=== PATIENT | female | born 1975 | race Caucasian/White ===

== ENCOUNTER 2018-12-01 21:57 | Observation (INO) | payer MEDICAID ==
[2018-12-01] MEDS ORDERED: Morphine 4 MG/ML Syringe IM ONE (22:05)
--- NOTE | 2018-12-01 22:17 | EDM.PDOC ---
ED HPI GENERAL MEDICAL PROBLEM - General Stated Complaint: FALL Time Seen by Provider: 12/01/18 21:57 Source of Information: Reports: Patient, EMS, Family History Limitations: Reports: Physical Impairment - History of Present Illness INITIAL COMMENTS - FREE TEXT/NARRATIVE: 43 y.o.morbid obese female came by EMS after she fell at home taking a shower. Pt c/o severe pain behind her right knee. Any movement is painfull. No N/V/D or any other acute med issue. BP 144/91 RR 18 Pulse ox 98% on RA Temp 36.6 Pulse 88 Onset Date: 12/01/18 Onset Time: 20:00 Duration: Minutes:, Hour(s): Location: Reports: Lower Extremity, Right (knee) Quality: Reports: Ache, Dull Severity: Moderate Improves with: Reports: Rest Worsens with: Reports: Movement Context: Reports: Trauma Associated Symptoms: Reports: No Other Symptoms right knee Pain Score (Numeric/FACES): 10 - Related Data Allergies Allergy/AdvReac Type Severity Reaction Status Date / Time Penicillins Allergy Anaphylactic Verified 12/02/18 02:58 Shock Home Meds: Home Meds Benztropine Mesylate 0.5 mg PO DAILY 12/01/18 [History] Dorzolamide/Timolol [Dorzolomide-Timolol Eye Drops] 10 ml .XX DAILY 12/01/18 [ History] Losartan Potassium 50 mg PO DAILY 12/01/18 [History] Lurasidone HCl [Latuda] 80 mg PO DAILY 12/01/18 [History] atoMOXetine HCl [Atomoxetine HCl] 60 mg PO DAILY 12/01/18 [History] traMADol HCl [Tramadol HCl] 50 mg PO Q6H PRN 12/01/18 [History] Review of Systems - Review of Systems Review Of Systems: See Below Constitutional: Reports: No Symptoms Eyes: Reports: No Symptoms Ears: Reports: No Symptoms Nose: Reports: No Symptoms Mouth/Throat: Reports: No Symptoms Respiratory: Reports: No Symptoms Cardiovascular: Reports: No Symptoms GI/Abdominal: Reports: No Symptoms Genitourinary: Reports: No Symptoms Musculoskeletal: Reports: Joint Pain (right knee) Skin: Reports: No Symptoms Neurological: Reports: No Symptoms Psychiatric: Reports: No Symptoms ED EXAM, GENERAL - Physical Exam Exam: See Below Exam Limited By: Physical Impairment General Appearance: Alert, Moderate Distress, Obese (morbid) Eye Exam: Bilateral Eye: Normal Inspection Ears: Normal External Exam Ear Exam: Bilateral Ear: Auricle Normal Nose: Normal Inspection, Normal Mucosa Throat/Mouth: Normal Inspection, Normal Lips, Normal Voice, No Airway Compromise Head: Atraumatic, Normocephalic Neck: Normal Inspection, Supple, Non-Tender Respiratory/Chest: No Respiratory Distress, Lungs Clear, Normal Breath Sounds, Chest Non-Tender Cardiovascular: Normal Peripheral Pulses, Regular Rate, Rhythm, No Edema, No Rub GI/Abdominal: Normal Bowel Sounds, Soft, Non-Tender, No Mass (Female) Exam: Deferred Rectal (Female) Exam: Deferred Back Exam: Normal Inspection, Full Range of Motion Extremities: Normal Inspection, Normal Range of Motion, Non-Tender Neurological: Alert, Oriented, CN II-XII Intact, Other (unable to ambulate due to right knee pain) Psychiatric: Normal Affect, Normal Mood Skin Exam: Warm, Dry, Intact, Normal Color, No Rash Lymphatic: No Adenopathy Course - Vital Signs Text/Narrative:: 43 y.o.morbid obese female came by EMS after she fell at home taking a shower. Pt c/o severe pain behind her right knee. Any movement is painfull. No N/V/D or any other acute med issue. BP 144/91 RR 18 Pulse ox 98% on RA Temp 36.6 Pulse 88 PE: Morbid obese w f wit right knee pain, unable to ambulate Imaging: Minimally displaced vertical Fx right lat epicondyle of right knee T/P and heal neg Impression: Minimally displaced vertical Fx right lat epicondyle of right knee. S/P fall, unable to ambulate. Tx: Morphine sulfate totalof 8 mg IM 12.01 am Consultation: Vera Ontiveros, no answer 12.11 am Consultation: Vera Ontiveros, no answer 12.17 am Consultation: Vera Myers, [facility]: Minimally displaced Fx right lat epicondyle of right knee, no surgery indicated, Knee immobilizer of wheel chair, no weight bearing. Reexam: Pt was stable in the ED. we do not have the Size of Knee immobilizer for this Pt's seiz and no wheelchair to give her to take home. Plan: Admit for M/S OBS Last Recorded V/S: Last Vital Signs Temp 36.8 C 12/02/18 02:45 Pulse 93 12/02/18 02:45 Resp 18 12/02/18 02:45 BP 100/67 12/02/18 02:45 Pulse Ox 97 12/02/18 02:45 - Orders/Labs/Meds Orders: Active Orders 24 hr Category Date Time Status Patient Status [ADT] Routine ADT 12/02/18 02:21 Active Cooling Warming Measures [RC] ASDIRECTED Care 12/01/18 22:15 Active Oxygen Therapy [RC] PRN Care 12/02/18 02:21 Active Up With Assistance [RC] ASDIRECTED Care 12/02/18 02:20 Active VTE/DVT Education [RC] Per Unit Routine Care 12/02/18 02:21 Active Vital Signs [RC] Q4H Care 12/02/18 02:21 Active Lower Extremity wo Cont Rt [CT] Stat Exams 12/01/18 22:13 Taken Tibia Fibula Rt [CR] Stat Exams 12/02/18 01:08 Taken Ice Bag [Ice Therapy] [OM.PC] Routine Oth 12/01/18 22:15 Ordered Resuscitation Status Routine Resus Stat 12/02/18 02:20 Ordered Meds: Medications Discontinued Medications Generic Name Dose Route Start Last Admin Trade Name Freq PRN Reason Stop Dose Admin Morphine Sulfate 4 mg 12/01/18 22:05 12/01/18 22:15 Morphine IM 12/01/18 22:06 4 mg ONETIME ONE Administration Morphine Sulfate Confirm 12/01/18 22:11 12/01/18 22:20 Morphine Administered 12/01/18 22:12 Not Given Dose 4 mg .ROUTE .STK-MED ONE Morphine Sulfate 4 mg 12/02/18 01:04 12/02/18 01:08 Morphine IM 12/02/18 01:05 4 mg ONETIME ONE Administration Morphine Sulfate Confirm 12/02/18 01:07 12/02/18 01:11 Morphine Administered 12/02/18 01:08 Not Given Dose 4 mg .ROUTE .STK-MED ONE Orphenadrine Citrate 60 mg 12/02/18 03:02 Norflex IM 12/02/18 03:03 Q12H STA Departure - Departure Time of Disposition: 02:27 Disposition: Refer to Observation Condition: Fair Clinical Impression: Closed fracture of knee region - Discharge Information - My Orders Last 24 Hours: My Active Orders 12/01/18 22:13 Lower Extremity wo Cont Rt [CT] Stat 12/01/18 22:15 Cooling Warming Measures [RC] ASDIRECTED Ice Bag [Ice Therapy] [OM.PC] Routine 12/02/18 01:08 Tibia Fibula Rt [CR] Stat 12/02/18 02:20 Up With Assistance [RC] ASDIRECTED Resuscitation Status Routine 12/02/18 02:21 Patient Status [ADT] Routine Oxygen Therapy [RC] PRN VTE/DVT Education [RC] Per Unit Routine Vital Signs [RC] Q4H - Assessment/Plan Last 24 Hours: My Active Orders 12/01/18 22:13 Lower Extremity wo Cont Rt [CT] Stat 12/01/18 22:15 Cooling Warming Measures [RC] ASDIRECTED Ice Bag [Ice Therapy] [OM.PC] Routine 12/02/18 01:08 Tibia Fibula Rt [CR] Stat 12/02/18 02:20 Up With Assistance [RC] ASDIRECTED Resuscitation Status Routine 12/02/18 02:21 Patient Status [ADT] Routine Oxygen Therapy [RC] PRN VTE/DVT Education [RC] Per Unit Routine Vital Signs [RC] Q4H
[2018-12-02] MEDS ORDERED: Morphine 4 MG/ML Syringe IM ONE (01:04)
[2018-12-02] MEDS: Acetaminophen/HYDROcodone 325-5 MG Tab PO PRN ×4 (07:44→21:55)
--- NOTE | 2018-12-02 08:39 | PCM.HP ---
H&P History of Present Illness - General Date of Service: 12/02/18 Admit Problem/Dx: Admission Diagnosis/Problem Admission Diagnosis/Problem Knee joint injury Source of Information: Patient History Limitations: Reports: No Limitations - History of Present Illness Initial Comments - Free Text/Narative: Kamila is a 43-year-old female complains right knee pain. Pain is severe behind the knee describes it as spasms. She is unable to ambulate.It happened while was walking when she felt a pop. She was unable to ambulate; called the ambulance and was brought to the ED. right knee Pain Score (Numeric/FACES): 10 - Related Data Allergies/Adverse Reactions: Allergies Allergy/AdvReac Type Severity Reaction Status Date / Time Penicillins Allergy Anaphylactic Verified 12/02/18 02:58 Shock Home Medications: Home Meds Benztropine Mesylate 0.5 mg PO DAILY 12/01/18 [History] Dorzolamide/Timolol [Dorzolomide-Timolol Eye Drops] 10 ml .XX DAILY 12/01/18 [ History] Losartan Potassium 50 mg PO DAILY 12/01/18 [History] Lurasidone HCl [Latuda] 80 mg PO DAILY 12/01/18 [History] atoMOXetine HCl [Atomoxetine HCl] 60 mg PO DAILY 12/01/18 [History] traMADol HCl [Tramadol HCl] 50 mg PO Q6H PRN 12/01/18 [History] Aspirin 81 mg PO DAILY 12/02/18 [History] Carboxymethylcellulose Sodium [Refresh Tears] 1 drop Q4HR PRN 12/02/18 [History] Past Medical History HEENT History: Reports: Impaired Vision Cardiovascular History: Reports: Hypertension [employer] History: Reports: Other OB/BYN History: Musculoskeletal History: Reports: Fracture, Other (See Below) Other Musculoskeletal History: bilat wrist fx. r ankle fx. this admission r femur fx Neurological History: Reports: Migraines Psychiatric History: Reports: ADD, Depression Endocrine/Metabolic History: Reports: Obesity/BMI 30+ - Infectious Disease History Infectious Disease History: Reports: Chicken Pox - Past Surgical History Female Surgical History: Reports: Section Social & Family History - Family History Family Medical History: Noncontributory - Tobacco Use Smoking Status *Q: Never Smoker Years of Tobacco use: 3 Packs/Tins Daily: 0.5 Second Hand Smoke Exposure: No - Caffeine Use Caffeine Use: Reports: Soda Other Caffeine Use: 1 can - Recreational Drug Use Recreational Drug Use: No H&P Review of Systems - Review of Systems: Review Of Systems: ROS reveals no pertinent complaints other than HPI. Exam - Exam Exam: See Below - Vital Signs Vital Signs: Last Vital Signs Temp 98.3 F 12/02/18 02:45 Pulse 93 12/02/18 02:45 Resp 18 12/02/18 02:45 BP 100/67 12/02/18 02:45 Pulse Ox 97 12/02/18 02:45 Weight: 133.22 kg - Exam General: Alert, Oriented, 4 HEENT: PERRLA, Hearing Intact, Mucosa Moist & [place], Nares Patent, Normal Nasal Septum, Posterior Pharynx Clear, Conjunctiva Clear, EOMI, EACs Clear, TMs Clear Neck: Supple, Trachea Midline, 2 Lungs: Clear to Auscultation, Normal Respiratory Effort Cardiovascular: Regular Rate, Regular Rhythm GI/Abdominal Exam: Normal Bowel Sounds, Soft, Non-Tender, No Organomegaly, No Distention, No Abnormal Bruit, No Mass, Pelvis Stable (Female) Exam: Deferred Rectal (Female) Exam: Deferred Back Exam: Normal Inspection, Full Range of Motion, NT Extremities: Normal Inspection, Leg Pain, Limited Range of Motion. No: Normal Range of Motion Skin: Warm, Dry, Intact Neurological: Cranial Nerves Intact, Reflexes Equal Bilateral Neuro Extensive - Mental Status: Alert, Oriented x3, Normal Mood/Affect, Normal Cognition Neuro Extensive - Motor, Sensory, Reflexes: CN II-XII Intact, Normal Gait, Normal Reflexes Psychiatric: Alert, Normal Affect, Normal Mood - Problem List (1) Closed fracture of knee region SNOMED Code(s): 491677490 ICD Code: [id number] - Status: Acute Current Visit: Yes (2) Obesity SNOMED Code(s): 740547679, 160658792 ICD Code: E66.9 - OBESITY, UNSPECIFIED Status: Acute Current Visit: Yes Qualifiers: Obesity type: due to excess calories (3) EBER (generalized anxiety disorder) SNOMED Code(s): 45102849 ICD Code: F41.1 - GENERALIZED ANXIETY DISORDER Status: Acute Current Visit: Yes (4) ADHD SNOMED Code(s): 378181769 ICD Code: F90.9 - ATTENTION-DEFICIT HYPERACTIVITY DISORDER, UNSPECIFIED TYPE Status: Acute Current Visit: Yes (5) HTN (hypertension) SNOMED Code(s): 82291519 ICD Code: I10 - ESSENTIAL (PRIMARY) HYPERTENSION Status: Acute Current Visit: Yes Qualifiers: Hypertension type: essential hypertension Qualified Code(s): I10 - Essential (primary) hypertension (6) MDD (major depressive disorder) SNOMED Code(s): 999228464 ICD Code: F32.9 - MAJOR DEPRESSIVE DISORDER, SINGLE EPISODE, UNSPECIFIED Status: Acute Current Visit: Yes Qualifiers: Major depression recurrence: recurrent Problem List Initiated/Reviewed/Updated: Yes Orders Last 24hrs: Active Orders 24 hr Category Date Time Status Patient Status [ADT] Routine ADT 12/02/18 02:21 Active Oxygen Therapy [RC] PRN Care 12/02/18 02:21 Active Up With Assistance [RC] ASDIRECTED Care 12/02/18 02:20 Active VTE/DVT Education [RC] Per Unit Routine Care 12/02/18 02:21 Active Vital Signs [RC] 00,04,08,12,16,20 Care 12/02/18 02:21 Active OT Evaluation and Treatment [CONS] Routine Cons 12/02/18 08:35 Ordered PT Evaluation and Treatment [CONS] Routine Cons 12/02/18 08:35 Ordered Lower Extremity wo Cont Rt [CT] Stat Exams 12/01/18 22:13 Taken Tibia Fibula Rt [CR] Stat Exams 12/02/18 01:08 Taken Acetaminophen/HYDROcodone [Gordon 325-5 MG] Med 12/02/18 07:15 Active 1 tab PO Q4H PRN Aspirin Med 12/02/18 09:00 Ordered 81 mg PO DAILY Benztropine [Cogentin] Med 12/02/18 09:00 Ordered 0.5 mg PO DAILY Cyclobenzaprine [Flexeril] Med 12/02/18 08:35 Ordered 10 mg PO BID PRN Dorzolamide/Timolol [Cosopt 2%-0.5% Ophth Soln] Med 12/02/18 09:00 Ordered 10 ml .XX DAILY Losartan [Cozaar] Med 12/02/18 09:00 Ordered 50 mg PO DAILY Lurasidone HCl [Latuda] Med 12/02/18 09:00 Ordered 80 mg PO DAILY atoMOXetine HCl [Atomoxetine HCl] Med 12/02/18 09:00 Ordered 60 mg PO DAILY Ice Bag [Ice Therapy] [OM.PC] Routine Oth 12/01/18 22:15 Ordered Resuscitation Status Routine Resus Stat 12/02/18 02:20 Ordered Medication Orders Hydrocodone Bitart/Acetaminophen (Gordon 325-5 Mg) 1 tab PO Q4H PRN PRN Reason: Pain Last Admin: 12/02/18 07:44 Dose: 1 tab Aspirin (Aspirin) 81 mg PO DAILY JONATHAN Benztropine Mesylate (Cogentin) 0.5 mg PO DAILY JONATHAN Cyclobenzaprine HCl (Flexeril) 10 mg PO BID PRN PRN Reason: Spasms Dorzolamide/Timolol (Cosopt 2%-0.5% Ophth Soln) 10 ml .XX DAILY JONATHAN Losartan Potassium (Cozaar) 50 mg PO DAILY JONATHAN Non-Formulary Medication (Atomoxetine Hcl [Atomoxetine Hcl]) 60 mg PO DAILY JONATHAN Non-Formulary Medication (Lurasidone Hcl [Latuda]) 80 mg PO DAILY JONATHAN Assessment/Plan Comment:: I will recommend a brace of the knee.Ice to the area. A "pop" is suspicious for a ligament injury,I will therefore get an MR. I have added Flexeril fo the spasms.Consult PT and OT.
[2018-12-02] MEDS ORDERED: ATOMOXETINE HCL 60 MG PO SCH (09:00)
[2018-12-02] MEDS ORDERED: Enoxaparin 40 MG/0.4 ML Syringe SUBCUT ONE (09:02)
[2018-12-02] MEDS: Cyclobenzaprine 10 MG Tab PO PRN ×2 (10:16→23:30)
[2018-12-02] MEDS: Aspirin 81 MG Tab.Chew PO SCH (10:16)
[2018-12-02] MEDS: Losartan 50 MG Tab PO SCH (10:16)
[2018-12-02] MEDS: Benztropine 0.5 MG Tab PO SCH (10:18)
[2018-12-02] MEDS: DORZOLAMIDE EYEBOTH SCH (12:46)
[2018-12-02] MEDS: TIMOLOL EYEBOTH SCH (12:46)
[2018-12-02] MEDS: ATOMOXETINE HCL 60 MG PO SCH (21:57)
[2018-12-02] MEDS: LURASIDONE HCL 80 MG PO SCH (21:58)
[2018-12-03] MEDS: Acetaminophen/HYDROcodone 325-5 MG Tab PO PRN ×5 (02:06→19:37)
[2018-12-03] MEDS: Cyclobenzaprine 10 MG Tab PO PRN ×2 (06:43→20:33)
--- NOTE | 2018-12-03 09:03 | PCM.CONS ---
H&P History of Present Illness - General Date of Service: 12/03/18 Admit Problem/Dx: Admission Diagnosis/Problem Admission Diagnosis/Problem Knee joint injury Source of Information: Patient, EMS, Old Records, Provider History Limitations: Reports: No Limitations - History of Present Illness Onset of Symptoms: Reports: Sudden Symptom Onset Date: 12/01/18 Duration of Symptoms: Reports: Day(s): Location: Reports: Lower Extremity, Right Quality: Reports: Sharp, Stabbing, Throbbing Severity: Moderate Improves with: Reports: Immobilization Worsens with: Reports: Movement Associated Symptoms: Reports: No Other Symptoms right knee Pain Score (Numeric/FACES): 3 - Related Data Allergies/Adverse Reactions: Allergies Allergy/AdvReac Type Severity Reaction Status Date / Time Penicillins Allergy Anaphylactic Verified 12/02/18 02:58 Shock Home Medications: Home Meds Benztropine Mesylate 0.5 mg PO DAILY 12/01/18 [History] Dorzolamide/Timolol [Dorzolomide-Timolol Eye Drops] 10 ml .XX DAILY 12/01/18 [ History] Losartan Potassium 50 mg PO DAILY 12/01/18 [History] Lurasidone HCl [Latuda] 80 mg PO DAILY 12/01/18 [History] atoMOXetine HCl [Atomoxetine HCl] 60 mg PO DAILY 12/01/18 [History] traMADol HCl [Tramadol HCl] 50 mg PO Q6H PRN 12/01/18 [History] Aspirin 81 mg PO DAILY 12/02/18 [History] Carboxymethylcellulose Sodium [Refresh Tears] 1 drop Q4HR PRN 12/02/18 [History] Past Medical History HEENT History: Reports: Impaired Vision Cardiovascular History: Reports: Hypertension [employer] 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 r ankle fx. this admission r femur fx Neurological History: Reports: Migraines Psychiatric History: Reports: ADD, Depression Endocrine/Metabolic History: Reports: Obesity/BMI 30+ - Infectious Disease History Infectious Disease History: Reports: Chicken Pox - Past Surgical History Female Surgical History: Reports: Section Social & Family History - Family History Family Medical History: Noncontributory - Tobacco Use Smoking Status *Q: Never Smoker Years of Tobacco use: 3 Packs/Tins Daily: 0.5 Second Hand Smoke Exposure: No - Caffeine Use Caffeine Use: Reports: Soda Other Caffeine Use: 1 can - Recreational Drug Use Recreational Drug Use: No H&P Review of Systems - Review of Systems: Review Of Systems: See Below General: Reports: No Symptoms HEENT: Reports: No Symptoms Pulmonary: Reports: No Symptoms Cardiovascular: Reports: No Symptoms Gastrointestinal: Reports: No Symptoms Genitourinary: Reports: No Symptoms Musculoskeletal: Reports: Leg Pain, Joint Pain, Joint Swelling Skin: Reports: No Symptoms Psychiatric: Reports: No Symptoms Neurological: Reports: No Symptoms Hematologic/Lymphatic: Reports: No Symptoms Immunologic: Reports: No Symptoms Exam - Exam Exam: See Below - Vital Signs Vital Signs: Last Vital Signs Temp 98.1 F 12/03/18 04:00 Pulse 88 12/03/18 04:00 Resp 20 12/03/18 04:00 BP 140/86 12/03/18 04:00 Pulse Ox 99 12/03/18 04:00 Weight: 293 lb 11.2 oz - Exam General: Alert, Oriented, Moderate Distress HEENT: PERRLA, Conjunctiva Clear, EOMI, Hearing Intact, Mucosa Moist & [place], Pupils Equal, Pupils Reactive Neck: Supple, Trachea Midline Lungs: Normal Respiratory Effort GI/Abdominal Exam: No Distention Peripheral Pulses: 2+: Dorsalis Pedis (L), Dorsalis Pedis (R) Skin: Warm, Dry Neuro Extensive - Mental Status: Alert, Oriented x3, Normal Mood/Affect, Normal Cognition, Memory Intact Psychiatric: Alert, Normal Affect, Normal Mood - Patient Data Lab Results Last 24 hrs: Laboratory Results - last 24 hr 12/02/18 12/02/18 Range/Units 09:15 09:15 WBC 12.7 H (4.5-12.0) X10-3/uL RBC 4.28 (3.23-5.20) x10(6)uL Hgb 12.4 (11.5-15.5) g/dL Hct 36.7 (30.0-51.3) % MCV 85.5 (80-96) fL MCH 29.0 (27.7-33.6) pg MCHC 33.9 (32.2-35.4) g/dL RDW 13.1 (11.5-15.5) % Plt Count 324 (125-369) X10(3)uL MPV 7.7 (7.4-10.4) fL Neut % (Auto) 84.5 H (46-82) % Lymph % (Auto) 9.8 L (13-37) % Beckham % (Auto) 3.9 L (4-12) % Eos % (Auto) 0 L (1.0-5.0) % Baso % (Auto) 2 (0-2) % Neut # (Auto) 10.8 H (1.6-8.3) # Lymph # (Auto) 1.2 (0.6-5.0) # Beckham # (Auto) 0.5 (0.0-1.3) # Eos # (Auto) 0.0 (0.0-0.8) # Baso # (Auto) 0.2 (0.0-0.2) # Sodium 142 (135-145) mmol/L Potassium 3.7 (3.5-5.3) mmol/L Chloride 108 (100-110) mmol/L Carbon Dioxide 24 (21-32) mmol/L BUN 14 (7-18) mg/dL Creatinine 0.7 (0.55-1.02) mg/dL Est Cr Clr Drug Dosing 84.84 mL/min Estimated GFR (MDRD) > 60 (>60) BUN/Creatinine Ratio 20.0 (9-20) Glucose 93 (80-116) mg/dL Calcium 8.9 (8.6-10.2) mg/dL Total Bilirubin 0.7 (0.1-1.3) mg/dL AST 21 (5-25) IU/L ALT 29 (12-36) U/L Alkaline Phosphatase 96 (56-112) IU/L Total Protein 7.0 (6.0-8.0) g/dL Albumin 3.3 L (3.5-5.2) g/dL Globulin 3.7 g/dL Albumin/Globulin Ratio 0.9 Result Diagrams: 12/02/18 09:15 12/02/18 09:15 Consult PN Assessment/Plan POD#: 0 Procedures: Procedures ASSAY THYROID STIM HORMONE (04/02/14) ROUTINE VENIPUNCTURE (04/02/14) (1) Closed fracture of knee region SNOMED Code(s): 069872988 Code(s): EOP7202 - Current Visit: Yes Problem List Initiated/Reviewed/Updated: Yes Plan: I had the pleasure visiting with the patient in her hospital room this morning. She fell in the shower 2 days ago. She lives at home with her and 2 children who are about 8 years old. She was brought in by EMS and evaluated by the emergency department physician. She was found to have a lateral condyle fracture of the distal femur. They contacted [facility] to advise nonoperative treatment. She is getting an MRI of the right knee today to evaluate for any ligamentous issues. She does have significant pain. The patient is significantly overweight. She is in moderate distress this morning but appears to understand and an answer all questions appropriately. She understands the situation that she is in. Assessment: 43-year-old female significantly overweight with right distal lateral femoral condyle fracture, closed. Plan: I advised the patient that we are looking into an immobilizer that would work for her weight but I am doubtful we can find one that will E appropriate. I advised her that in the absence of an immobilizer she would need to be nonweightbearing on the right lower extremity for 6-8 weeks. She would need DVT prophylaxis during this time. Because of her weight I believe that she will need alf during this time. I did advise her that if the fragment change position and was no longer in good alignment we would need to proceed with operative treatment which would consist of a lateral distal femoral plate. She would need to be nonweightbearing for 6-8 weeks after that procedure as well. I will need to see her in clinic every 2 weeks with radiographs of the right knee. We will get those appointments set up. I will evaluate her MRI after is complete. Requesting Provider: reuben Date Consult Requested: 12/03/18 Reason for Consult: distal femur fracture Patient History Reviewed: Yes Admission H&P Reviewed: Yes Notified Requestor: No (will notify when he is done with morning consults) Time Spent (in minutes): 20
[2018-12-03] MEDS: Aspirin 81 MG Tab.Chew PO SCH (09:40)
[2018-12-03] MEDS: DORZOLAMIDE EYEBOTH SCH (09:41)
[2018-12-03] MEDS: TIMOLOL EYEBOTH SCH (09:41)
[2018-12-03] MEDS: Losartan 50 MG Tab PO SCH (09:41)
[2018-12-03] MEDS: Benztropine 0.5 MG Tab PO SCH (09:41)
--- NOTE | 2018-12-03 13:46 | PN ---
DATE SEEN: 12/03/2018 SUBJECTIVE: Kamila Hughes is a young lady, 43 years of age. Fell in the tub 2 days ago. Was hospitalized and found to have a vertical fracture through the lateral epicondyle of the right knee. Weight and obesity are complicating issue. Brace under review, complicated by weight. Dr. Rose in Orthopedics has seen her today, plans on board. LABORATORY STUDIES: On 12/02/2018, white count 12,700, hemoglobin 12.4, hematocrit 36.7, and normal indices. PHYSICAL EXAMINATION: VITAL SIGNS: 133.22 kg, 120/80, 20, and 99. GENERAL: Appears comfortable, lying supine in bed. CHEST: Clear in all lung ayala. HEART: Distant heart sounds. No ectopy or murmur. ABDOMEN: Benign. EXTREMITIES: Tender lateral right knee. ASSESSMENT: Supracondylar fracture, lateral right knee. PLAN: Ortho on board, treatment plans accordingly, may be nonweightbearing for length of time, bracing difficult. /[id number] /CATA
[2018-12-03] MEDS: ATOMOXETINE HCL 60 MG PO SCH (20:33)
[2018-12-03] MEDS: LURASIDONE HCL 80 MG PO SCH (20:34)
[2018-12-04] MEDS: Acetaminophen/HYDROcodone 325-5 MG Tab PO PRN ×2 (03:35→08:20)
[2018-12-04] MEDS: Cyclobenzaprine 10 MG Tab PO PRN (06:19)
[2018-12-04] MEDS: Aspirin 81 MG Tab.Chew PO SCH (08:21)
[2018-12-04] MEDS: Losartan 50 MG Tab PO SCH (08:22)
[2018-12-04] MEDS: DORZOLAMIDE EYEBOTH SCH (08:22)
[2018-12-04] MEDS: Benztropine 0.5 MG Tab PO SCH (08:22)
[2018-12-04] MEDS: TIMOLOL EYEBOTH SCH (08:22)
[2018-12-04] MEDS: Celecoxib 200 MG Cap PO SCH (11:15)
[2018-12-04] MEDS: ATOMOXETINE HCL 60 MG PO SCH (11:17)
[2018-12-04] MEDS: Acetaminophen/HYDROcodone 325-10 MG Tab PO PRN (16:19)
[2018-12-04] MEDS: LURASIDONE HCL 80 MG PO SCH (20:57)
[2018-12-04] MEDS: Polyethylene Glycol 3350 Powder 17 GM Packet PO SCH (20:58)
[2018-12-05] MEDS: Cyclobenzaprine 10 MG Tab PO PRN ×2 (07:28→21:40)
--- NOTE | 2018-12-05 08:10 | PN ---
DATE SEEN: 12/04/2018 SUBJECTIVE: Kamila Hughes is a 43-year-old female, seen today for review. Hospitalized with a minimally displaced vertical fracture of lateral epicondyle of the right knee. Did not appear to extend into the articular surface. Brace has been ordered, bariatric brace, will be here on . Pain moderate to significant in nature. DISCHARGE STATUS: Uncertain, given plans. LABORATORY STUDIES: None indicated. Admission lab reviewed. RADIOGRAPHS: Under review. PHYSICAL EXAMINATION: VITAL SIGNS: 36.8, 134/84, 18, and 95. GENERAL: In good spirits. NECK: Benign. Thyroid small. CHEST: Clear in all lung ayala. HEART: No ectopy or murmur. ABDOMEN: Benign. EXTREMITIES: Tender over the lateral right knee. IMPRESSION: Lateral epicondylar fracture, right knee. PLAN: Brace has been ordered, pain medications on board, complementary care and well being. /[id number] TOMÁS/CATA
[2018-12-05] MEDS: Celecoxib 200 MG Cap PO SCH (09:39)
[2018-12-05] MEDS: Aspirin 81 MG Tab.Chew PO SCH (09:39)
[2018-12-05] MEDS: ATOMOXETINE HCL 60 MG PO SCH (09:39)
[2018-12-05] MEDS: TIMOLOL EYEBOTH SCH (09:40)
[2018-12-05] MEDS: Polyethylene Glycol 3350 Powder 17 GM Packet PO SCH ×2 (09:40→21:19)
[2018-12-05] MEDS: Benztropine 0.5 MG Tab PO SCH (09:40)
[2018-12-05] MEDS: Losartan 50 MG Tab PO SCH (09:40)
[2018-12-05] MEDS: DORZOLAMIDE EYEBOTH SCH (09:40)
[2018-12-05] MEDS: Acetaminophen/HYDROcodone 325-10 MG Tab PO PRN ×2 (13:24→21:40)
--- NOTE | 2018-12-05 13:59 | PN ---
DATE SEEN: 12/05/2018 SUBJECTIVE: Kamila Hughes is a 43-year-old female admitted on 12/01/2018. Had sustained a fall resulting in a minimally displaced vertical fracture, lateral epicondyle of the right knee. Doing reasonably well. Pain with ambulation. PT on board. Brace planned for today or tomorrow. Dr. Rocael Rose, Orthopedics, is involved with her care. Nonweightbearing allowed. LABORATORY STUDIES: None since admission. OBJECTIVE: VITAL SIGNS: 36.8, 84, 138/98, 16, and 98. GENERAL: Appears well. Speech was fluent. NECK: Benign. CHEST: Clear in all lung ayala. HEART: No ectopy or murmur. ABDOMEN: Rotund. EXTREMITIES: Tender lateral right knee. ASSESSMENT: Right lateral condylar fracture, right knee. PLAN: Plan is on board. Brace, ambulation. Plan is to discharge home. /[id number] /CATA
[2018-12-05] MEDS: LURASIDONE HCL 80 MG PO SCH (21:19)
[2018-12-06] MEDS: Aspirin 81 MG Tab.Chew PO SCH (08:35)
[2018-12-06] MEDS: ATOMOXETINE HCL 60 MG PO SCH (08:35)
[2018-12-06] MEDS: TIMOLOL EYEBOTH SCH (08:35)
[2018-12-06] MEDS: DORZOLAMIDE EYEBOTH SCH (08:35)
[2018-12-06] MEDS: Celecoxib 200 MG Cap PO SCH (08:35)
[2018-12-06] MEDS: Losartan 50 MG Tab PO SCH (08:36)
[2018-12-06] MEDS: Polyethylene Glycol 3350 Powder 17 GM Packet PO SCH ×2 (08:36→20:40)
[2018-12-06] MEDS: Cyclobenzaprine 10 MG Tab PO PRN (08:44)
[2018-12-06] MEDS: Acetaminophen/HYDROcodone 325-10 MG Tab PO PRN ×2 (08:44→17:03)
--- NOTE | 2018-12-06 13:38 | PN ---
DATE SEEN: 12/06/2018 SUBJECTIVE: Kamila Hughes is a 43-year-old, female, admitted with acute condylar fracture, right knee. Brace has been placed since yesterday. Ambulation has been a bit testy but more comfortable. Pain appears to be reasonably well controlled with hydrocodone. Plan is for discharge with adaptive equipment ramp in her home is under review. Trial Court Justice are actively involved. LABORATORY STUDIES: None indicated. RADIOGRAPHS: No new indications. PHYSICAL EXAMINATION: VITAL SIGNS: 36.8, 132/65, 18, and 98 O2 saturation percent. GENERAL: Appears comfortable. A bit withdrawn, little sad. NECK: Benign. CHEST: Clear all lung ayala. HEART: No ectopy or murmur. ABDOMEN: Benign. EXTREMITIES: Brace in place. Condylar fracture, right knee. PLAN: PT actively involved. Discharge planning in place. /[id number] TOMÁS/CATA
[2018-12-06] MEDS: Ciprofloxacin 250 MG Tab PO SCH (17:03)
[2018-12-06] MEDS: Benztropine 0.5 MG Tab PO SCH (20:36)
[2018-12-06] MEDS: LURASIDONE HCL 80 MG PO SCH (20:39)
[2018-12-07] MEDS: Acetaminophen/HYDROcodone 325-10 MG Tab PO PRN ×2 (05:49→17:34)
--- NOTE | 2018-12-07 08:39 | PCM.PN ---
- General Info Date of Service: 12/07/18 Admission Dx/Problem (Free Text): Patient is without complaints. She says her pain is controlled and her right leg. No leg swelling. Denies chest pain or shortness of breath - Patient Data Vitals - Most Recent: Last Vital Signs Temp 99.1 F 12/06/18 21:00 Pulse 81 12/06/18 21:00 Resp 18 12/06/18 21:00 BP 128/95 H 12/06/18 21:00 Pulse Ox 98 12/07/18 02:00 Weight - Most Recent: 293 lb 11.2 oz I&O - Last 24 Hours: Intake & Output 12/06/18 12/07/18 12/07/18 22:59 06:59 14:59 Intake Total 375 200 Output Total 1000 Balance -625 200 Lab Results Last 24 Hours: Laboratory Results - last 24 hr 12/06/18 Range/Units 12:55 Urine Color Yellow (YELLOW) Urine Appearance Cloudy (CLEAR) Urine pH 7.0 H (5.0-6.5) Ur Specific [place] 1.015 (1.010-1.025) Urine Protein Negative (NEGATIVE) mg/dL Urine Glucose (UA) Normal (NORMAL) mg/dL Urine Ketones Negative (NEGATIVE) mg/dL Urine Occult Blood Large H (NEGATIVE) Urine Nitrite Negative (NEGATIVE) Urine Bilirubin Negative (NEGATIVE) Urine Urobilinogen 1 H (NEGATIVE) mg/dL Ur Leukocyte Esterase Large H (NEGATIVE) Urine RBC >100 H (0-5) Urine WBC >100 H (0-5) Ur Squamous Epith Cells Few H (NS,R,O) Urine Bacteria Many H (NS) Solitario Results Last 24 Hours: Microbiology 12/06/18 12:55 Urine Culture - Preliminary Urine, [place] Cath (Indwelling) Gram Negative Rods Med Orders - Current: Current Medications Hydrocodone Bitart/Acetaminophen ([place] 325-10 Mg) 1 tab PO Q6H PRN PRN Reason: leg pain fractured Last Admin: 12/07/18 05:49 Dose: 1 tab Aspirin (Aspirin) 81 mg PO DAILY [facility] Last Admin: 12/06/18 08:35 Dose: 81 mg Benztropine Mesylate (Cogentin) 0.5 mg PO BEDTIME [facility] Last Admin: 12/06/18 20:36 Dose: 0.5 mg Celecoxib (Celebrex) 200 mg PO DAILY [facility] Last Admin: 12/06/18 08:35 Dose: 200 mg Ciprofloxacin (Ciprofloxacin Hcl) 250 mg PO BID [facility] Stop: 12/09/18 09:01 Last Admin: 12/06/18 17:03 Dose: 250 mg Cyclobenzaprine HCl (Flexeril) 10 mg PO BID PRN PRN Reason: Spasms Last Admin: 12/06/18 08:44 Dose: 10 mg Dorzolamide/Timolol (Cosopt 2%-0.5% Ophth Soln) 0 ml EYEBOTH DAILY [facility] Last Admin: 12/06/18 08:35 Dose: 2 drop Losartan Potassium (Cozaar) 50 mg PO DAILY [facility] Last Admin: 12/06/18 08:36 Dose: 50 mg Lurasidone Hcl [ Latuda] 80 MgOwn Med 80 mg PO BEDTIME [facility] Last Admin: 12/06/18 20:39 Dose: 80 mg Atomoxetine Hcl [ Atomoxetine Hcl] 60 MgOwn Med 60 mg PO DAILY [facility] Last Admin: 12/06/18 08:35 Dose: 60 mg Polyethylene Glycol (Miralax) 17 gm PO BID [facility] Last Admin: 12/06/18 20:40 Dose: Not Given Tramadol HCl (Ultram) 50 mg PO Q6H PRN PRN Reason: Pain Discontinued Medications Hydrocodone Bitart/Acetaminophen ([place] 325-5 Mg) 1 tab PO Q4H PRN PRN Reason: Pain Last Admin: 12/04/18 08:20 Dose: 1 tab Benztropine Mesylate (Cogentin) 0.5 mg PO DAILY [facility] Last Admin: 12/05/18 09:40 Dose: 0.5 mg Enoxaparin Sodium (Lovenox) 40 mg SUBCUT ONETIME ONE Stop: 12/02/18 09:03 Last Admin: 12/02/18 10:15 Dose: 40 mg Morphine Sulfate (Morphine) 4 mg IM ONETIME ONE Stop: 12/01/18 22:06 Last Admin: 12/01/18 22:15 Dose: 4 mg Morphine Sulfate (Morphine) Confirm Administered Dose 4 mg .ROUTE .STK-MED ONE Stop: 12/01/18 22:12 Last Admin: 12/01/18 22:20 Dose: Not Given Morphine Sulfate (Morphine) 4 mg IM ONETIME ONE Stop: 12/02/18 01:05 Last Admin: 12/02/18 01:08 Dose: 4 mg Morphine Sulfate (Morphine) Confirm Administered Dose 4 mg .ROUTE .STK-MED ONE Stop: 12/02/18 01:08 Last Admin: 12/02/18 01:11 Dose: Not Given Atomoxetine Hcl [ Atomoxetine Hcl] 60 MgOwn Med 60 mg PO DAILY [facility] Last Admin: 12/02/18 14:08 Dose: Not Given Atomoxetine Hcl [ Atomoxetine Hcl] 60 MgOwn Med 60 mg PO BEDTIME [facility] Last Admin: 12/03/18 20:33 Dose: 60 mg Orphenadrine Citrate (Norflex) 60 mg IM Q12H [facility] Stop: 12/02/18 03:03 Last Admin: 12/02/18 04:05 Dose: 60 mg - Exam General: Alert, Oriented, Cooperative Extremities: Other (Right leg in splint. Lower extremity pulses intact with no swelling) - Problem List & Annotations (1) Femur fracture, right SNOMED Code(s): 56582819 Code(s): S72.91XA - UNSP FRACTURE OF RIGHT FEMUR, INIT FOR CLOS FX Status: Acute Current Visit: Yes (2) Obesity SNOMED Code(s): 056180923, 023353468 Code(s): E66.9 - OBESITY, UNSPECIFIED Status: Acute Current Visit: Yes Qualifiers: Obesity type: due to excess calories - Problem List Review Problem List Initiated/Reviewed/Updated: Yes - My Orders Last 24 Hours: My Active Orders 12/07/18 08:33 traMADol [Ultram] 50 mg PO Q6H PRN - Plan Plan:: 1. Continue PT/OT. 2. 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 At this point she needs a ramp and they're having struggles getting 1 for her home. 3. Discuss VTE prophylaxis with orthopedic.
[2018-12-07] MEDS: DORZOLAMIDE EYEBOTH SCH (09:44)
[2018-12-07] MEDS: ATOMOXETINE HCL 60 MG PO SCH (09:44)
[2018-12-07] MEDS: Ciprofloxacin 250 MG Tab PO SCH ×2 (09:44→20:13)
[2018-12-07] MEDS: Polyethylene Glycol 3350 Powder 17 GM Packet PO SCH ×2 (09:44→20:14)
[2018-12-07] MEDS: TIMOLOL EYEBOTH SCH (09:44)
[2018-12-07] MEDS: Celecoxib 200 MG Cap PO SCH (09:44)
[2018-12-07] MEDS: Losartan 50 MG Tab PO SCH (09:45)
[2018-12-07] MEDS: Enoxaparin 40 MG/0.4 ML Syringe SUBCUT SCH (09:46)
[2018-12-07] MEDS: Aspirin 81 MG Tab.Chew PO SCH (11:04)
[2018-12-07] MEDS: Benztropine 0.5 MG Tab PO SCH (20:13)
[2018-12-07] MEDS: LURASIDONE HCL 80 MG PO SCH (20:14)
--- NOTE | 2018-12-08 07:41 | PCM.PN ---
- General Info Date of Service: 12/08/18 Admission Dx/Problem (Free Text): Patient states she has a little pain in her leg but it's well-controlled. She denies dysuria, pyuria, hematuria. No fevers, chills or - Patient Data Vitals - Most Recent: Last Vital Signs Temp 99.3 F 12/07/18 21:00 Pulse 83 12/07/18 21:00 Resp 18 12/07/18 21:00 BP 134/75 12/07/18 21:00 Pulse Ox 96 12/08/18 02:00 Weight - Most Recent: 293 lb 11.2 oz Solitario Results Last 24 Hours: Microbiology 12/06/18 12:55 Urine Culture - Final Urine, Sutherland Cath (Indwelling) Escherichia Coli Med Orders - Current: Current Medications Hydrocodone Bitart/Acetaminophen ([place] 325-10 Mg) 1 tab PO Q6H PRN PRN Reason: leg pain fractured Last Admin: 12/07/18 17:34 Dose: 1 tab Benztropine Mesylate (Cogentin) 0.5 mg PO BEDTIME [facility] Last Admin: 12/07/18 20:13 Dose: 0.5 mg Celecoxib (Celebrex) 200 mg PO DAILY [facility] Last Admin: 12/07/18 09:44 Dose: 200 mg Ciprofloxacin (Ciprofloxacin Hcl) 250 mg PO BID [facility] Stop: 12/09/18 09:01 Last Admin: 12/07/18 20:13 Dose: 250 mg Cyclobenzaprine HCl (Flexeril) 10 mg PO BID PRN PRN Reason: Spasms Last Admin: 12/06/18 08:44 Dose: 10 mg Dorzolamide/Timolol (Cosopt 2%-0.5% Ophth Soln) 0 ml EYEBOTH DAILY [facility] Last Admin: 12/07/18 09:44 Dose: 2 drop Enoxaparin Sodium (Lovenox) 40 mg SUBCUT DAILY [facility] Last Admin: 12/07/18 09:46 Dose: 40 mg Losartan Potassium (Cozaar) 50 mg PO DAILY [facility] Last Admin: 12/07/18 09:45 Dose: 50 mg Lurasidone Hcl [ Latuda] 80 MgOwn Med 80 mg PO BEDTIME [facility] Last Admin: 12/07/18 20:14 Dose: 80 mg Atomoxetine Hcl [ Atomoxetine Hcl] 60 MgOwn Med 60 mg PO DAILY [facility] Last Admin: 12/07/18 09:44 Dose: 60 mg Polyethylene Glycol (Miralax) 17 gm PO BID [facility] Last Admin: 12/07/18 20:14 Dose: Not Given Tramadol HCl (Ultram) 50 mg PO Q6H PRN PRN Reason: Pain Discontinued Medications Hydrocodone Bitart/Acetaminophen ([place] 325-5 Mg) 1 tab PO Q4H PRN PRN Reason: Pain Last Admin: 12/04/18 08:20 Dose: 1 tab Aspirin (Aspirin) 81 mg PO DAILY [facility] Last Admin: 12/07/18 11:04 Dose: Not Given Benztropine Mesylate (Cogentin) 0.5 mg PO DAILY [facility] Last Admin: 12/05/18 09:40 Dose: 0.5 mg Enoxaparin Sodium (Lovenox) 40 mg SUBCUT ONETIME ONE Stop: 12/02/18 09:03 Last Admin: 12/02/18 10:15 Dose: 40 mg Morphine Sulfate (Morphine) 4 mg IM ONETIME ONE Stop: 12/01/18 22:06 Last Admin: 12/01/18 22:15 Dose: 4 mg Morphine Sulfate (Morphine) Confirm Administered Dose 4 mg .ROUTE .STK-MED ONE Stop: 12/01/18 22:12 Last Admin: 12/01/18 22:20 Dose: Not Given Morphine Sulfate (Morphine) 4 mg IM ONETIME ONE Stop: 12/02/18 01:05 Last Admin: 12/02/18 01:08 Dose: 4 mg Morphine Sulfate (Morphine) Confirm Administered Dose 4 mg .ROUTE .STK-MED ONE Stop: 12/02/18 01:08 Last Admin: 12/02/18 01:11 Dose: Not Given Atomoxetine Hcl [ Atomoxetine Hcl] 60 MgOwn Med 60 mg PO DAILY [facility] Last Admin: 12/02/18 14:08 Dose: Not Given Atomoxetine Hcl [ Atomoxetine Hcl] 60 MgOwn Med 60 mg PO BEDTIME [facility] Last Admin: 12/03/18 20:33 Dose: 60 mg Orphenadrine Citrate (Norflex) 60 mg IM Q12H [facility] Stop: 12/02/18 03:03 Last Admin: 12/02/18 04:05 Dose: 60 mg - Exam General: Alert, Oriented, Cooperative Lungs: Normal Respiratory Effort Extremities: No Pedal Edema - Problem List & Annotations (1) Femur fracture, right SNOMED Code(s): 09038489 Code(s): S72.91XA - UNSP FRACTURE OF RIGHT FEMUR, INIT FOR CLOS FX Status: Acute Current Visit: Yes (2) Obesity SNOMED Code(s): 750736380, 454088896 Code(s): E66.9 - OBESITY, UNSPECIFIED Status: Acute Current Visit: Yes Qualifiers: Obesity type: due to excess calories - Problem List Review Problem List Initiated/Reviewed/Updated: Yes - My Orders Last 24 Hours: My Active Orders 12/07/18 08:33 traMADol [Ultram] 50 mg PO Q6H PRN 12/07/18 09:15 Enoxaparin [Lovenox] 40 mg SUBCUT DAILY - Plan Plan:: 1. Continue current care. Apparently she doesn't qualify for group home and she can get into her home. Her is working on getting a ramp for her.
[2018-12-08] MEDS: TIMOLOL EYEBOTH SCH (08:51)
[2018-12-08] MEDS: DORZOLAMIDE EYEBOTH SCH (08:51)
[2018-12-08] MEDS: ATOMOXETINE HCL 60 MG PO SCH (08:51)
[2018-12-08] MEDS: Celecoxib 200 MG Cap PO SCH (08:51)
[2018-12-08] MEDS: Ciprofloxacin 250 MG Tab PO SCH ×2 (08:52→20:22)
[2018-12-08] MEDS: Polyethylene Glycol 3350 Powder 17 GM Packet PO SCH ×2 (08:52→20:29)
[2018-12-08] MEDS: Enoxaparin 40 MG/0.4 ML Syringe SUBCUT SCH (08:52)
[2018-12-08] MEDS: Losartan 50 MG Tab PO SCH (08:52)
[2018-12-08] MEDS: traMADol 50 MG Tab PO PRN (08:53)
[2018-12-08] MEDS: Cyclobenzaprine 10 MG Tab PO PRN (08:53)
[2018-12-08] MEDS: LURASIDONE HCL 80 MG PO SCH (20:22)
[2018-12-08] MEDS: Benztropine 0.5 MG Tab PO SCH (20:22)
[2018-12-08] MEDS: Acetaminophen/HYDROcodone 325-10 MG Tab PO PRN (20:23)
--- NOTE | 2018-12-09 07:59 | PCM.PN ---
- General Info Date of Service: 12/09/18 Admission Dx/Problem (Free Text): Patient without concerns. Pain is under control - Patient Data Vitals - Most Recent: Last Vital Signs Temp 98.2 F 12/08/18 21:00 Pulse 78 12/08/18 21:00 Resp 18 12/08/18 21:00 BP 123/75 12/08/18 21:00 Pulse Ox 97 12/09/18 02:00 Weight - Most Recent: 293 lb 11.2 oz Solitario Results Last 24 Hours: Microbiology 12/06/18 12:55 Urine Culture - Final Urine, Sutherland Cath (Indwelling) Escherichia Coli Med Orders - Current: Current Medications Hydrocodone Bitart/Acetaminophen ([place] 325-10 Mg) 1 tab PO Q6H PRN PRN Reason: leg pain fractured Last Admin: 12/08/18 20:23 Dose: 1 tab Benztropine Mesylate (Cogentin) 0.5 mg PO BEDTIME [facility] Last Admin: 12/08/18 20:22 Dose: 0.5 mg Celecoxib (Celebrex) 200 mg PO DAILY [facility] Last Admin: 12/08/18 08:51 Dose: 200 mg Ciprofloxacin (Ciprofloxacin Hcl) 250 mg PO BID [facility] Stop: 12/09/18 09:01 Last Admin: 12/08/18 20:22 Dose: 250 mg Cyclobenzaprine HCl (Flexeril) 10 mg PO BID PRN PRN Reason: Spasms Last Admin: 12/08/18 08:53 Dose: 10 mg Dorzolamide/Timolol (Cosopt 2%-0.5% Ophth Soln) 0 ml EYEBOTH DAILY [facility] Last Admin: 12/08/18 08:51 Dose: 1 drop Enoxaparin Sodium (Lovenox) 40 mg SUBCUT DAILY [facility] Last Admin: 12/08/18 08:52 Dose: 40 mg Losartan Potassium (Cozaar) 50 mg PO DAILY [facility] Last Admin: 12/08/18 08:52 Dose: 50 mg Lurasidone Hcl [ Latuda] 80 MgOwn Med 80 mg PO BEDTIME [facility] Last Admin: 12/08/18 20:22 Dose: 80 mg Atomoxetine Hcl [ Atomoxetine Hcl] 60 MgOwn Med 60 mg PO DAILY [facility] Last Admin: 12/08/18 08:51 Dose: 60 mg Polyethylene Glycol (Miralax) 17 gm PO BID [facility] Last Admin: 12/08/18 20:29 Dose: Not Given Tramadol HCl (Ultram) 50 mg PO Q6H PRN PRN Reason: Pain Last Admin: 12/08/18 08:53 Dose: 50 mg Discontinued Medications Hydrocodone Bitart/Acetaminophen ([place] 325-5 Mg) 1 tab PO Q4H PRN PRN Reason: Pain Last Admin: 12/04/18 08:20 Dose: 1 tab Aspirin (Aspirin) 81 mg PO DAILY [facility] Last Admin: 12/07/18 11:04 Dose: Not Given Benztropine Mesylate (Cogentin) 0.5 mg PO DAILY [facility] Last Admin: 12/05/18 09:40 Dose: 0.5 mg Enoxaparin Sodium (Lovenox) 40 mg SUBCUT ONETIME ONE Stop: 12/02/18 09:03 Last Admin: 12/02/18 10:15 Dose: 40 mg Morphine Sulfate (Morphine) 4 mg IM ONETIME ONE Stop: 12/01/18 22:06 Last Admin: 12/01/18 22:15 Dose: 4 mg Morphine Sulfate (Morphine) Confirm Administered Dose 4 mg .ROUTE .STK-MED ONE Stop: 12/01/18 22:12 Last Admin: 12/01/18 22:20 Dose: Not Given Morphine Sulfate (Morphine) 4 mg IM ONETIME ONE Stop: 12/02/18 01:05 Last Admin: 12/02/18 01:08 Dose: 4 mg Morphine Sulfate (Morphine) Confirm Administered Dose 4 mg .ROUTE .STK-MED ONE Stop: 12/02/18 01:08 Last Admin: 12/02/18 01:11 Dose: Not Given Atomoxetine Hcl [ Atomoxetine Hcl] 60 MgOwn Med 60 mg PO DAILY [facility] Last Admin: 12/02/18 14:08 Dose: Not Given Atomoxetine Hcl [ Atomoxetine Hcl] 60 MgOwn Med 60 mg PO BEDTIME [facility] Last Admin: 12/03/18 20:33 Dose: 60 mg Orphenadrine Citrate (Norflex) 60 mg IM Q12H [facility] Stop: 12/02/18 03:03 Last Admin: 12/02/18 04:05 Dose: 60 mg - Exam General: Alert, Oriented Extremities: No Pedal Edema, Other (Right leg in large brace) - Problem List & Annotations (1) Femur fracture, right SNOMED Code(s): 44757499 Code(s): S72.91XA - UNSP FRACTURE OF RIGHT FEMUR, INIT FOR CLOS FX Status: Acute Current Visit: Yes (2) Obesity SNOMED Code(s): 574575930, 949364119 Code(s): E66.9 - OBESITY, UNSPECIFIED Status: Acute Current Visit: Yes Qualifiers: Obesity type: due to excess calories - Problem List Review Problem List Initiated/Reviewed/Updated: Yes - Assessment Assessment:: 1. Continue current care. - Plan Plan:: 1. Continue current care. Apparently she doesn't qualify for fdc and she can get into her home. Her is working on getting a ramp for her.
[2018-12-09] MEDS: Acetaminophen/HYDROcodone 325-10 MG Tab PO PRN ×2 (08:10→20:37)
[2018-12-09] MEDS: ATOMOXETINE HCL 60 MG PO SCH (08:11)
[2018-12-09] MEDS: Polyethylene Glycol 3350 Powder 17 GM Packet PO SCH ×2 (08:11→20:03)
[2018-12-09] MEDS: Celecoxib 200 MG Cap PO SCH (08:11)
[2018-12-09] MEDS: Ciprofloxacin 250 MG Tab PO SCH (08:12)
[2018-12-09] MEDS: Losartan 50 MG Tab PO SCH (08:12)
[2018-12-09] MEDS: DORZOLAMIDE EYEBOTH SCH (08:12)
[2018-12-09] MEDS: TIMOLOL EYEBOTH SCH (08:12)
[2018-12-09] MEDS: Enoxaparin 40 MG/0.4 ML Syringe SUBCUT SCH (08:13)
[2018-12-09] MEDS: Benztropine 0.5 MG Tab PO SCH (20:02)
[2018-12-09] MEDS: LURASIDONE HCL 80 MG PO SCH (20:02)
[2018-12-10] MEDS: ATOMOXETINE HCL 60 MG PO SCH (08:11)
[2018-12-10] MEDS: Celecoxib 200 MG Cap PO SCH (08:11)
[2018-12-10] MEDS: TIMOLOL EYEBOTH SCH (08:12)
[2018-12-10] MEDS: DORZOLAMIDE EYEBOTH SCH (08:12)
[2018-12-10] MEDS: Losartan 50 MG Tab PO SCH (08:12)
[2018-12-10] MEDS: Acetaminophen/HYDROcodone 325-10 MG Tab PO PRN ×2 (08:13→18:03)
[2018-12-10] MEDS: Enoxaparin 40 MG/0.4 ML Syringe SUBCUT SCH (08:13)
[2018-12-10] MEDS: Polyethylene Glycol 3350 Powder 17 GM Packet PO SCH ×2 (08:13→21:22)
--- NOTE | 2018-12-10 08:31 | PCM.PN ---
<Kavita Wheleer - Last Filed: 12/10/18 08:25> - General Info Date of Service: 12/10/18 Admission Dx/Problem (Free Text): Patient is doing well this morning - no acute events over night. We continue to look for placement for her as she is medically stable; however, is unable to get into her house due to steps. She denies any issues with pain, breathing/ shortness of breath, or chest pain. Functional Status: Reports: Pain Controlled - Review of Systems General: Reports: Weakness Pulmonary: Denies: Shortness of Breath, Cough Cardiovascular: Denies: Chest Pain, Palpitations Gastrointestinal: Denies: Abdominal Pain, Constipation, Diarrhea, Nausea, Vomiting Musculoskeletal: Reports: Leg Pain (right leg) Neurological: Denies: Numbness - Patient Data Vitals - Most Recent: Last Vital Signs Temp 36.1 C 12/10/18 07:50 Pulse 87 12/10/18 07:50 Resp 16 12/10/18 07:50 BP 131/82 12/10/18 08:12 Pulse Ox 98 12/10/18 07:50 Weight - Most Recent: 293 lb 11.2 oz Med Orders - Current: Current Medications Hydrocodone Bitart/Acetaminophen ([place] 325-10 Mg) 1 tab PO Q6H PRN PRN Reason: leg pain fractured Last Admin: 12/10/18 08:13 Dose: 1 tab Benztropine Mesylate (Cogentin) 0.5 mg PO BEDTIME [facility] Last Admin: 12/09/18 20:02 Dose: 0.5 mg Celecoxib (Celebrex) 200 mg PO DAILY [facility] Last Admin: 12/10/18 08:11 Dose: 200 mg Cyclobenzaprine HCl (Flexeril) 10 mg PO BID PRN PRN Reason: Spasms Last Admin: 12/08/18 08:53 Dose: 10 mg Dorzolamide/Timolol (Cosopt 2%-0.5% Ophth Soln) 0 ml EYEBOTH DAILY [facility] Last Admin: 12/10/18 08:12 Dose: 2 drop Enoxaparin Sodium (Lovenox) 40 mg SUBCUT DAILY [facility] Last Admin: 12/10/18 08:13 Dose: 40 mg Losartan Potassium (Cozaar) 50 mg PO DAILY [facility] Last Admin: 12/10/18 08:12 Dose: 50 mg Lurasidone Hcl [ Latuda] 80 MgOwn Med 80 mg PO BEDTIME [facility] Last Admin: 12/09/18 20:02 Dose: 80 mg Atomoxetine Hcl [ Atomoxetine Hcl] 60 MgOwn Med 60 mg PO DAILY [facility] Last Admin: 12/10/18 08:11 Dose: 60 mg Polyethylene Glycol (Miralax) 17 gm PO BID [facility] Last Admin: 12/10/18 08:13 Dose: Not Given Tramadol HCl (Ultram) 50 mg PO Q6H PRN PRN Reason: Pain Last Admin: 12/08/18 08:53 Dose: 50 mg Discontinued Medications Hydrocodone Bitart/Acetaminophen ([place] 325-5 Mg) 1 tab PO Q4H PRN PRN Reason: Pain Last Admin: 12/04/18 08:20 Dose: 1 tab Aspirin (Aspirin) 81 mg PO DAILY [facility] Last Admin: 12/07/18 11:04 Dose: Not Given Benztropine Mesylate (Cogentin) 0.5 mg PO DAILY [facility] Last Admin: 12/05/18 09:40 Dose: 0.5 mg Ciprofloxacin (Ciprofloxacin Hcl) 250 mg PO BID [facility] Stop: 12/09/18 09:01 Last Admin: 12/09/18 08:12 Dose: 250 mg Enoxaparin Sodium (Lovenox) 40 mg SUBCUT ONETIME ONE Stop: 12/02/18 09:03 Last Admin: 12/02/18 10:15 Dose: 40 mg Morphine Sulfate (Morphine) 4 mg IM ONETIME ONE Stop: 12/01/18 22:06 Last Admin: 12/01/18 22:15 Dose: 4 mg Morphine Sulfate (Morphine) Confirm Administered Dose 4 mg .ROUTE .STK-MED ONE Stop: 12/01/18 22:12 Last Admin: 12/01/18 22:20 Dose: Not Given Morphine Sulfate (Morphine) 4 mg IM ONETIME ONE Stop: 12/02/18 01:05 Last Admin: 12/02/18 01:08 Dose: 4 mg Morphine Sulfate (Morphine) Confirm Administered Dose 4 mg .ROUTE .STK-MED ONE Stop: 12/02/18 01:08 Last Admin: 12/02/18 01:11 Dose: Not Given Atomoxetine Hcl [ Atomoxetine Hcl] 60 MgOwn Med 60 mg PO DAILY [facility] Last Admin: 12/02/18 14:08 Dose: Not Given Atomoxetine Hcl [ Atomoxetine Hcl] 60 MgOwn Med 60 mg PO BEDTIME [facility] Last Admin: 12/03/18 20:33 Dose: 60 mg Orphenadrine Citrate (Norflex) 60 mg IM Q12H [facility] Stop: 12/02/18 03:03 Last Admin: 12/02/18 04:05 Dose: 60 mg - Exam General: Alert, No Acute Distress Lungs: Clear to Auscultation, Normal Respiratory Effort Cardiovascular: Regular Rate, Regular Rhythm, No Murmurs GI/Abdominal Exam: Normal Bowel Sounds, Soft, Non-Tender Extremities: Normal Inspection Peripheral Pulses: 2+: Dorsalis Pedis (L), Dorsalis Pedis (R) Skin: Warm, Dry, Intact Psy/Mental Status: Alert, Normal Affect - Problem List & Annotations (1) Femur fracture, right SNOMED Code(s): 16603831 Code(s): S72.91XA - UNSP FRACTURE OF RIGHT FEMUR, INIT FOR CLOS FX Status: Acute Current Visit: Yes - Problem List Review Problem List Initiated/Reviewed/Updated: Yes - Plan Plan:: 1. Possibly penitentiary placement - waiting for approval. <Guevara Orona - Last Filed: 12/10/18 08:38> - Patient Data Vitals - Most Recent: Last Vital Signs Temp 97.0 F 12/10/18 07:50 Pulse 87 12/10/18 07:50 Resp 16 12/10/18 07:50 BP 131/82 12/10/18 08:12 Pulse Ox 98 12/10/18 07:50 Med Orders - Current: Current Medications Hydrocodone Bitart/Acetaminophen ([place] 325-10 Mg) 1 tab PO Q6H PRN PRN Reason: leg pain fractured Last Admin: 12/10/18 08:13 Dose: 1 tab Benztropine Mesylate (Cogentin) 0.5 mg PO BEDTIME [facility] Last Admin: 12/09/18 20:02 Dose: 0.5 mg Celecoxib (Celebrex) 200 mg PO DAILY [facility] Last Admin: 12/10/18 08:11 Dose: 200 mg Cyclobenzaprine HCl (Flexeril) 10 mg PO BID PRN PRN Reason: Spasms Last Admin: 12/08/18 08:53 Dose: 10 mg Dorzolamide/Timolol (Cosopt 2%-0.5% Ophth Soln) 0 ml EYEBOTH DAILY [facility] Last Admin: 12/10/18 08:12 Dose: 2 drop Enoxaparin Sodium (Lovenox) 40 mg SUBCUT DAILY [facility] Last Admin: 12/10/18 08:13 Dose: 40 mg Losartan Potassium (Cozaar) 50 mg PO DAILY [facility] Last Admin: 12/10/18 08:12 Dose: 50 mg Lurasidone Hcl [ Latuda] 80 MgOwn Med 80 mg PO BEDTIME [facility] Last Admin: 12/09/18 20:02 Dose: 80 mg Atomoxetine Hcl [ Atomoxetine Hcl] 60 MgOwn Med 60 mg PO DAILY [facility] Last Admin: 12/10/18 08:11 Dose: 60 mg Polyethylene Glycol (Miralax) 17 gm PO BID [facility] Last Admin: 12/10/18 08:13 Dose: Not Given Tramadol HCl (Ultram) 50 mg PO Q6H PRN PRN Reason: Pain Last Admin: 12/08/18 08:53 Dose: 50 mg Discontinued Medications Hydrocodone Bitart/Acetaminophen ([place] 325-5 Mg) 1 tab PO Q4H PRN PRN Reason: Pain Last Admin: 12/04/18 08:20 Dose: 1 tab Aspirin (Aspirin) 81 mg PO DAILY [facility] Last Admin: 12/07/18 11:04 Dose: Not Given Benztropine Mesylate (Cogentin) 0.5 mg PO DAILY [facility] Last Admin: 12/05/18 09:40 Dose: 0.5 mg Ciprofloxacin (Ciprofloxacin Hcl) 250 mg PO BID [facility] Stop: 12/09/18 09:01 Last Admin: 12/09/18 08:12 Dose: 250 mg Enoxaparin Sodium (Lovenox) 40 mg SUBCUT ONETIME ONE Stop: 12/02/18 09:03 Last Admin: 12/02/18 10:15 Dose: 40 mg Morphine Sulfate (Morphine) 4 mg IM ONETIME ONE Stop: 12/01/18 22:06 Last Admin: 12/01/18 22:15 Dose: 4 mg Morphine Sulfate (Morphine) Confirm Administered Dose 4 mg .ROUTE .STK-MED ONE Stop: 12/01/18 22:12 Last Admin: 12/01/18 22:20 Dose: Not Given Morphine Sulfate (Morphine) 4 mg IM ONETIME ONE Stop: 12/02/18 01:05 Last Admin: 12/02/18 01:08 Dose: 4 mg Morphine Sulfate (Morphine) Confirm Administered Dose 4 mg .ROUTE .STK-MED ONE Stop: 12/02/18 01:08 Last Admin: 12/02/18 01:11 Dose: Not Given Atomoxetine Hcl [ Atomoxetine Hcl] 60 MgOwn Med 60 mg PO DAILY [facility] Last Admin: 12/02/18 14:08 Dose: Not Given Atomoxetine Hcl [ Atomoxetine Hcl] 60 MgOwn Med 60 mg PO BEDTIME [facility] Last Admin: 12/03/18 20:33 Dose: 60 mg Orphenadrine Citrate (Norflex) 60 mg IM Q12H [facility] Stop: 12/02/18 03:03 Last Admin: 12/02/18 04:05 Dose: 60 mg - Problem List & Annotations (1) Femur fracture, right SNOMED Code(s): 99103851 Code(s): S72.91XA - UNSP FRACTURE OF RIGHT FEMUR, INIT FOR CLOS FX Status: Acute Current Visit: Yes (2) Obesity SNOMED Code(s): 155300342, 779864775 Code(s): E66.9 - OBESITY, UNSPECIFIED Status: Acute Current Visit: Yes Qualifiers: Obesity type: due to excess calories - Plan Plan:: I attest that I saw this patient and agree with the note and plan
[2018-12-10] MEDS: Benztropine 0.5 MG Tab PO SCH (21:19)
[2018-12-10] MEDS: LURASIDONE HCL 80 MG PO SCH (21:20)
[2018-12-11] MEDS: Cyclobenzaprine 10 MG Tab PO PRN ×2 (05:38→20:24)
[2018-12-11] MEDS: ATOMOXETINE HCL 60 MG PO SCH (08:12)
[2018-12-11] MEDS: TIMOLOL EYEBOTH SCH (08:13)
[2018-12-11] MEDS: Losartan 50 MG Tab PO SCH (08:13)
[2018-12-11] MEDS: Enoxaparin 40 MG/0.4 ML Syringe SUBCUT SCH (08:13)
[2018-12-11] MEDS: DORZOLAMIDE EYEBOTH SCH (08:13)
[2018-12-11] MEDS: Polyethylene Glycol 3350 Powder 17 GM Packet PO SCH ×2 (08:14→20:10)
[2018-12-11] MEDS: Celecoxib 200 MG Cap PO SCH (08:14)
--- NOTE | 2018-12-11 08:46 | PCM.PN ---
- General Info Date of Service: 12/11/18 Admission Dx/Problem (Free Text): patient is doing the same. Night she has a little bit discomfort and uses pain meds.No leg swelling. - Patient Data Vitals - Most Recent: Last Vital Signs Temp 98.8 F 12/11/18 05:45 Pulse 85 12/11/18 05:45 Resp 16 12/11/18 05:45 BP 118/63 12/11/18 08:13 Pulse Ox 96 12/11/18 05:45 Weight - Most Recent: 293 lb 11.2 oz Med Orders - Current: Current Medications Hydrocodone Bitart/Acetaminophen ([place] 325-10 Mg) 1 tab PO Q6H PRN PRN Reason: leg pain fractured Last Admin: 12/10/18 18:03 Dose: 1 tab Benztropine Mesylate (Cogentin) 0.5 mg PO BEDTIME [facility] Last Admin: 12/10/18 21:19 Dose: 0.5 mg Celecoxib (Celebrex) 200 mg PO DAILY [facility] Last Admin: 12/11/18 08:14 Dose: 200 mg Cyclobenzaprine HCl (Flexeril) 10 mg PO BID PRN PRN Reason: Spasms Last Admin: 12/11/18 05:38 Dose: 10 mg Dorzolamide/Timolol (Cosopt 2%-0.5% Ophth Soln) 0 ml EYEBOTH DAILY [facility] Last Admin: 12/11/18 08:13 Dose: 2 drop Enoxaparin Sodium (Lovenox) 40 mg SUBCUT DAILY [facility] Last Admin: 12/11/18 08:13 Dose: 40 mg Losartan Potassium (Cozaar) 50 mg PO DAILY [facility] Last Admin: 12/11/18 08:13 Dose: 50 mg Lurasidone Hcl [ Latuda] 80 MgOwn Med 80 mg PO BEDTIME [facility] Last Admin: 12/10/18 21:20 Dose: 80 mg Atomoxetine Hcl [ Atomoxetine Hcl] 60 MgOwn Med 60 mg PO DAILY [facility] Last Admin: 12/11/18 08:12 Dose: 60 mg Polyethylene Glycol (Miralax) 17 gm PO BID [facility] Last Admin: 12/11/18 08:14 Dose: 17 gm Tramadol HCl (Ultram) 50 mg PO Q6H PRN PRN Reason: Pain Last Admin: 12/08/18 08:53 Dose: 50 mg Discontinued Medications Hydrocodone Bitart/Acetaminophen ([place] 325-5 Mg) 1 tab PO Q4H PRN PRN Reason: Pain Last Admin: 12/04/18 08:20 Dose: 1 tab Aspirin (Aspirin) 81 mg PO DAILY [facility] Last Admin: 12/07/18 11:04 Dose: Not Given Benztropine Mesylate (Cogentin) 0.5 mg PO DAILY [facility] Last Admin: 12/05/18 09:40 Dose: 0.5 mg Ciprofloxacin (Ciprofloxacin Hcl) 250 mg PO BID [facility] Stop: 12/09/18 09:01 Last Admin: 12/09/18 08:12 Dose: 250 mg Enoxaparin Sodium (Lovenox) 40 mg SUBCUT ONETIME ONE Stop: 12/02/18 09:03 Last Admin: 12/02/18 10:15 Dose: 40 mg Morphine Sulfate (Morphine) 4 mg IM ONETIME ONE Stop: 12/01/18 22:06 Last Admin: 12/01/18 22:15 Dose: 4 mg Morphine Sulfate (Morphine) Confirm Administered Dose 4 mg .ROUTE .STK-MED ONE Stop: 12/01/18 22:12 Last Admin: 12/01/18 22:20 Dose: Not Given Morphine Sulfate (Morphine) 4 mg IM ONETIME ONE Stop: 12/02/18 01:05 Last Admin: 12/02/18 01:08 Dose: 4 mg Morphine Sulfate (Morphine) Confirm Administered Dose 4 mg .ROUTE .STK-MED ONE Stop: 12/02/18 01:08 Last Admin: 12/02/18 01:11 Dose: Not Given Atomoxetine Hcl [ Atomoxetine Hcl] 60 MgOwn Med 60 mg PO DAILY [facility] Last Admin: 12/02/18 14:08 Dose: Not Given Atomoxetine Hcl [ Atomoxetine Hcl] 60 MgOwn Med 60 mg PO BEDTIME [facility] Last Admin: 12/03/18 20:33 Dose: 60 mg Orphenadrine Citrate (Norflex) 60 mg IM Q12H [facility] Stop: 12/02/18 03:03 Last Admin: 12/02/18 04:05 Dose: 60 mg - Exam General: Alert, Oriented Extremities: Other (knee immobilizer right leg) - Problem List & Annotations (1) Femur fracture, right SNOMED Code(s): 27525578 Code(s): S72.91XA - UNSP FRACTURE OF RIGHT FEMUR, INIT FOR CLOS FX Status: Acute Current Visit: Yes (2) Obesity SNOMED Code(s): 942182449, 332765489 Code(s): E66.9 - OBESITY, UNSPECIFIED Status: Acute Current Visit: Yes Qualifiers: Obesity type: due to excess calories - Problem List Review Problem List Initiated/Reviewed/Updated: Yes - Plan Plan:: they found a ramp to place on her step at house. It's coming from [facility]. And assuming this is simply she'll be discharged to home.
[2018-12-11] MEDS: traMADol 50 MG Tab PO PRN (19:42)
[2018-12-11] MEDS: LURASIDONE HCL 80 MG PO SCH (20:10)
[2018-12-11] MEDS: Benztropine 0.5 MG Tab PO SCH (20:10)
--- NOTE | 2018-12-12 08:00 | PCM.PN ---
- General Info Date of Service: 12/12/18 Admission Dx/Problem (Free Text): Without complaints. Pain is under control. - Patient Data Vitals - Most Recent: Last Vital Signs Temp 98.2 F 12/11/18 20:00 Pulse 90 12/11/18 20:00 Resp 18 12/11/18 20:00 BP 134/72 12/11/18 20:00 Pulse Ox 98 12/11/18 20:00 Weight - Most Recent: 293 lb 11.2 oz Med Orders - Current: Current Medications Hydrocodone Bitart/Acetaminophen ([place] 325-10 Mg) 1 tab PO Q6H PRN PRN Reason: leg pain fractured Last Admin: 12/10/18 18:03 Dose: 1 tab Benztropine Mesylate (Cogentin) 0.5 mg PO BEDTIME [facility] Last Admin: 12/11/18 20:10 Dose: 0.5 mg Celecoxib (Celebrex) 200 mg PO DAILY [facility] Last Admin: 12/11/18 08:14 Dose: 200 mg Cyclobenzaprine HCl (Flexeril) 10 mg PO BID PRN PRN Reason: Spasms Last Admin: 12/11/18 20:24 Dose: 10 mg Dorzolamide/Timolol (Cosopt 2%-0.5% Ophth Soln) 0 ml EYEBOTH DAILY [facility] Last Admin: 12/11/18 08:13 Dose: 2 drop Enoxaparin Sodium (Lovenox) 40 mg SUBCUT DAILY [facility] Last Admin: 12/11/18 08:13 Dose: 40 mg Losartan Potassium (Cozaar) 50 mg PO DAILY [facility] Last Admin: 12/11/18 08:13 Dose: 50 mg Lurasidone Hcl [ Latuda] 80 MgOwn Med 80 mg PO BEDTIME [facility] Last Admin: 12/11/18 20:10 Dose: 80 mg Atomoxetine Hcl [ Atomoxetine Hcl] 60 MgOwn Med 60 mg PO DAILY [facility] Last Admin: 12/11/18 08:12 Dose: 60 mg Polyethylene Glycol (Miralax) 17 gm PO BID [facility] Last Admin: 12/11/18 20:10 Dose: Not Given Tramadol HCl (Ultram) 50 mg PO Q6H PRN PRN Reason: Pain Last Admin: 12/11/18 19:42 Dose: 50 mg Discontinued Medications Hydrocodone Bitart/Acetaminophen ([place] 325-5 Mg) 1 tab PO Q4H PRN PRN Reason: Pain Last Admin: 12/04/18 08:20 Dose: 1 tab Aspirin (Aspirin) 81 mg PO DAILY [facility] Last Admin: 12/07/18 11:04 Dose: Not Given Benztropine Mesylate (Cogentin) 0.5 mg PO DAILY [facility] Last Admin: 12/05/18 09:40 Dose: 0.5 mg Ciprofloxacin (Ciprofloxacin Hcl) 250 mg PO BID [facility] Stop: 12/09/18 09:01 Last Admin: 12/09/18 08:12 Dose: 250 mg Enoxaparin Sodium (Lovenox) 40 mg SUBCUT ONETIME ONE Stop: 12/02/18 09:03 Last Admin: 12/02/18 10:15 Dose: 40 mg Morphine Sulfate (Morphine) 4 mg IM ONETIME ONE Stop: 12/01/18 22:06 Last Admin: 12/01/18 22:15 Dose: 4 mg Morphine Sulfate (Morphine) Confirm Administered Dose 4 mg .ROUTE .STK-MED ONE Stop: 12/01/18 22:12 Last Admin: 12/01/18 22:20 Dose: Not Given Morphine Sulfate (Morphine) 4 mg IM ONETIME ONE Stop: 12/02/18 01:05 Last Admin: 12/02/18 01:08 Dose: 4 mg Morphine Sulfate (Morphine) Confirm Administered Dose 4 mg .ROUTE .STK-MED ONE Stop: 12/02/18 01:08 Last Admin: 12/02/18 01:11 Dose: Not Given Atomoxetine Hcl [ Atomoxetine Hcl] 60 MgOwn Med 60 mg PO DAILY [facility] Last Admin: 12/02/18 14:08 Dose: Not Given Atomoxetine Hcl [ Atomoxetine Hcl] 60 MgOwn Med 60 mg PO BEDTIME [facility] Last Admin: 12/03/18 20:33 Dose: 60 mg Orphenadrine Citrate (Norflex) 60 mg IM Q12H [facility] Stop: 12/02/18 03:03 Last Admin: 12/02/18 04:05 Dose: 60 mg - Exam General: Alert, Oriented, Cooperative Extremities: Other (Right foot moves. No swelling. Pulses intact.) - Problem List & Annotations (1) Femur fracture, right SNOMED Code(s): 16137881 Code(s): S72.91XA - UNSP FRACTURE OF RIGHT FEMUR, INIT FOR CLOS FX Status: Acute Current Visit: Yes (2) Obesity SNOMED Code(s): 377633112, 846068978 Code(s): E66.9 - OBESITY, UNSPECIFIED Status: Acute Current Visit: Yes Qualifiers: Obesity type: due to excess calories - Problem List Review Problem List Initiated/Reviewed/Updated: Yes - Plan Plan:: they found a ramp to place on her step at house. It's coming from [facility]. As soon as it is assembled she'll be discharged to home.
[2018-12-12] MEDS: Losartan 50 MG Tab PO SCH (09:55)
[2018-12-12] MEDS: TIMOLOL EYEBOTH SCH (09:55)
[2018-12-12] MEDS: ATOMOXETINE HCL 60 MG PO SCH (09:55)
[2018-12-12] MEDS: DORZOLAMIDE EYEBOTH SCH (09:55)
[2018-12-12] MEDS: Celecoxib 200 MG Cap PO SCH (09:55)
[2018-12-12] MEDS: Enoxaparin 40 MG/0.4 ML Syringe SUBCUT SCH (09:56)
[2018-12-12] MEDS: Polyethylene Glycol 3350 Powder 17 GM Packet PO SCH (09:56)
--- NOTE | 2018-12-12 15:42 | PCM.DCSUM1 ---
Discharge Summary - Hospital Course Free Text/Narrative:: Hospital course-patient was admitted and have PT/OT. Dr. Benny Rose the orthopedic surgeon was consult that and put her in a knee immobilizer. Patient was assessed to go home but she had 3 stairs that she was unable to navigate. Because of her insurance and she had to remain observation care. So she was nonweightbearing and she could move a little bit with a walker but not do stairs. She did not cooperate for swing bed. Because her could not get a ramp the patient was in the hospital with PT/OT and nonweightbearing until they were able to find a ramp from [facility] and send it over. She will be transferred home and a ramp was billed it should be nonweightbearing with the right leg with a walker. Pain was controlled. Tramadol and Celebrex. Patient will see Dr. Rose back in follow-up. Brief History: Kamila is a 43-year-old female complains right knee pain. Pain is severe behind the knee describes it as spasms. She is unable to ambulate.It happened while was walking when she felt a pop. She was unable to ambulate; called the ambulance and was brought to the ED. She was admitted to the hospital because she could not bear weight and she was very weak. Diagnosis: Stroke: No - Discharge Data Discharge Date: 12/12/18 Discharge Disposition: Home, Self-Care 01 Condition: Stable - Discharge Diagnosis/Problem(s) (1) Femur fracture, right SNOMED Code(s): 38880435 ICD Code: S72.91XA - UNSP FRACTURE OF RIGHT FEMUR, INIT FOR CLOS FX Status : Acute Current Visit: Yes (2) Obesity SNOMED Code(s): 720293885, 459523981 ICD Code: E66.9 - OBESITY, UNSPECIFIED Status: Acute Current Visit: Yes Qualifiers: Obesity type: due to excess calories - Patient Summary/Data Consults: Consultations 12/02/18 08:35 OT Evaluation and Treatment [CONS] Routine Please Evaluate and Treat. OT Reason for Consult: ADL's This query below is only for informational purposes and is not editable. Admission Diagnosis/Problem: Knee joint injury PT Evaluation and Treatment [CONS] Routine Please Evaluate and Treat. PT Reason for Consult: Ambulation This query below is only for informational purposes and is not editable. Admission Diagnosis/Problem: Knee joint injury - Patient Instructions Diet: Regular Diet as Tolerated Activity: Non Weight Bearing Driving: Do Not Drive Showering/Bathing: May Shower Other/Special Instructions: 1. Recheck with Dr Rose 12/19/18. 2. PT/OT/home health for strengthening, ambulation, ADLs, medication management, home safety. - Discharge Plan Prescriptions/Med Rec: Celecoxib [CeleBREX] 200 mg PO DAILY #14 cap Home Medications: Home Meds Benztropine Mesylate 0.5 mg PO DAILY 12/01/18 [History] Dorzolamide/Timolol [Cosopt 2%-0.5% Ophth Soln] 10 ml .XX DAILY 12/01/18 [ History] Losartan Potassium 50 mg PO DAILY 12/01/18 [History] Lurasidone HCl [Latuda] 80 mg PO DAILY 12/01/18 [History] atoMOXetine HCl [Atomoxetine HCl] 60 mg PO DAILY 12/01/18 [History] traMADol HCl [Tramadol HCl] 50 mg PO Q6H PRN 12/01/18 [History] Aspirin 81 mg PO DAILY 12/02/18 [History] Carboxymethylcellulose Sodium [Refresh Tears] 1 drop Q4HR PRN 12/02/18 [History] Celecoxib [CeleBREX] 200 mg PO DAILY #14 cap 12/12/18 [Rx] traMADol [Ultram] 50 mg PO Q6H PRN tablet 12/12/18 [Rx] Patient Handouts: Fall Prevention in Hospitals, Adult, Deep Vein Thrombosis, Knee Fracture, Adult Forms: ED Department Discharge Referrals: Marcial Blank MD [Primary Care Provider] - Rocael Rose DO [Physician] - 12/19/18 11:30 am (dr rhodes # is he is at [facility] you may receive a call to come in earlier than 11:30 for x rays ) - Discharge Summary/Plan Comment DC Time >30 min.: No - Patient Data Vitals - Most Recent: Last Vital Signs Temp 99.3 F 12/12/18 08:00 Pulse 83 12/12/18 08:00 Resp 18 12/12/18 08:00 BP 118/72 12/12/18 09:55 Pulse Ox 96 12/12/18 08:00 Weight - Most Recent: 293 lb 11.2 oz Med Orders - Current: Current Medications Hydrocodone Bitart/Acetaminophen ([place] 325-10 Mg) 1 tab PO Q6H PRN PRN Reason: leg pain fractured Last Admin: 12/10/18 18:03 Dose: 1 tab Benztropine Mesylate (Cogentin) 0.5 mg PO BEDTIME [facility] Last Admin: 12/11/18 20:10 Dose: 0.5 mg Celecoxib (Celebrex) 200 mg PO DAILY [facility] Last Admin: 12/12/18 09:55 Dose: 200 mg Cyclobenzaprine HCl (Flexeril) 10 mg PO BID PRN PRN Reason: Spasms Last Admin: 12/11/18 20:24 Dose: 10 mg Dorzolamide/Timolol (Cosopt 2%-0.5% Ophth Soln) 0 ml EYEBOTH DAILY [facility] Last Admin: 12/12/18 09:55 Dose: 2 drop Enoxaparin Sodium (Lovenox) 40 mg SUBCUT DAILY [facility] Last Admin: 12/12/18 09:56 Dose: 40 mg Losartan Potassium (Cozaar) 50 mg PO DAILY [facility] Last Admin: 12/12/18 09:55 Dose: 50 mg Lurasidone Hcl [ Latuda] 80 MgOwn Med 80 mg PO BEDTIME [facility] Last Admin: 12/11/18 20:10 Dose: 80 mg Atomoxetine Hcl [ Atomoxetine Hcl] 60 MgOwn Med 60 mg PO DAILY [facility] Last Admin: 12/12/18 09:55 Dose: 60 mg Polyethylene Glycol (Miralax) 17 gm PO BID [facility] Last Admin: 12/12/18 09:56 Dose: Not Given Tramadol HCl (Ultram) 50 mg PO Q6H PRN PRN Reason: Pain Last Admin: 12/11/18 19:42 Dose: 50 mg Discontinued Medications Hydrocodone Bitart/Acetaminophen ([place] 325-5 Mg) 1 tab PO Q4H PRN PRN Reason: Pain Last Admin: 12/04/18 08:20 Dose: 1 tab Aspirin (Aspirin) 81 mg PO DAILY [facility] Last Admin: 12/07/18 11:04 Dose: Not Given Benztropine Mesylate (Cogentin) 0.5 mg PO DAILY [facility] Last Admin: 12/05/18 09:40 Dose: 0.5 mg Ciprofloxacin (Ciprofloxacin Hcl) 250 mg PO BID [facility] Stop: 12/09/18 09:01 Last Admin: 12/09/18 08:12 Dose: 250 mg Enoxaparin Sodium (Lovenox) 40 mg SUBCUT ONETIME ONE Stop: 12/02/18 09:03 Last Admin: 12/02/18 10:15 Dose: 40 mg Morphine Sulfate (Morphine) 4 mg IM ONETIME ONE Stop: 12/01/18 22:06 Last Admin: 12/01/18 22:15 Dose: 4 mg Morphine Sulfate (Morphine) Confirm Administered Dose 4 mg .ROUTE .STK-MED ONE Stop: 12/01/18 22:12 Last Admin: 12/01/18 22:20 Dose: Not Given Morphine Sulfate (Morphine) 4 mg IM ONETIME ONE Stop: 12/02/18 01:05 Last Admin: 12/02/18 01:08 Dose: 4 mg Morphine Sulfate (Morphine) Confirm Administered Dose 4 mg .ROUTE .STK-MED ONE Stop: 12/02/18 01:08 Last Admin: 12/02/18 01:11 Dose: Not Given Atomoxetine Hcl [ Atomoxetine Hcl] 60 MgOwn Med 60 mg PO DAILY [facility] Last Admin: 12/02/18 14:08 Dose: Not Given Atomoxetine Hcl [ Atomoxetine Hcl] 60 MgOwn Med 60 mg PO BEDTIME [facility] Last Admin: 12/03/18 20:33 Dose: 60 mg Orphenadrine Citrate (Norflex) 60 mg IM Q12H [facility] Stop: 12/02/18 03:03 Last Admin: 12/02/18 04:05 Dose: 60 mg
== END 2018-12-12 15:36 | disposition home or self-care (01) ==
LOC: FB.ED 21:57 → FB.MS 12-02 02:23
PROVIDERS: ADMIT Emergency Medicine; ATTEND Family Medicine
DX: S72.421A Displaced fracture of lateral condyle of right femur, initial encounter for closed fracture (principal); I10 Essential (primary) hypertension; F41.1 Generalized anxiety disorder; F90.9 Attention-deficit hyperactivity disorder, unspecified type; F32.9 Major depressive disorder, single episode, unspecified; E66.9 Obesity, unspecified; W18.2XXA Fall in (into) shower or empty bathtub, initial encounter; Z68.35 Body mass index [BMI] 35.0-35.9, adult; Z88.0 Allergy status to penicillin; Z79.82 Long term (current) use of aspirin; Z79.1 Long term (current) use of non-steroidal anti-inflammatories (NSAID); Z79.899 Other long term (current) drug therapy
CPT/HCPCS: 36415; 51702; 73590-RT; 73700-RT; 73721-RT; 80053; 81001; 85025; 87086; 87088; 87186; 96372; 97110-GP; 97116-GP; 97161-GP; 97165-GO; 97530-GP; 99284-25; A9270-GY; G0378; J1650; J2270; J2360

== ENCOUNTER 2024-05-14 07:47 | Day surgery (SDC) | payer MEDICAID ==
[~2024-05-14 07:47] MED LIST: Lactated Ringers 1,000 ML IV PRN
[2024-05-14] MEDS ORDERED: Midazolam 1 MG/ML 2 ML SDV IV ONE (07:48)
[2024-05-14] MEDS ORDERED: Sodium Chloride 0.9% 10 ML Syringe IV ONE (07:48)
[2024-05-14] MEDS ORDERED: fentaNYL 100 MCG/2 ML SDV IV ONE (07:48)
[2024-05-14] MEDS: Sodium Chloride 0.9% 10 ML Syringe FLUSH PRN (08:22)
[2024-05-14] MEDS: acetaZOLAMIDE 500 MG Cap.ER PO ONE (10:20)
== END 2024-05-14 10:34 | disposition home or self-care (01) ==
LOC: FB.SDS 07:47
PROVIDERS: ATTEND Ophthalmology
DX: H26.9 Unspecified cataract (principal); H40.1112 Primary open-angle glaucoma, right eye, moderate stage
CPT/HCPCS: 66991; A9270; C1783; J2250; J3010; J3490; V2632; 00142

== ENCOUNTER 2024-05-28 07:35 | Day surgery (SDC) | payer MEDICAID ==
[2024-05-28] MEDS ORDERED: Sodium Chloride 0.9% 10 ML Syringe IV ONE (07:36)
[2024-05-28] MEDS ORDERED: Midazolam 1 MG/ML 2 ML SDV IV ONE (07:36)
[2024-05-28] MEDS ORDERED: fentaNYL 100 MCG/2 ML SDV IV ONE (07:36)
[2024-05-28] MEDS: Sodium Chloride 0.9% 10 ML Syringe FLUSH PRN (08:09)
[2024-05-28] MEDS: acetaZOLAMIDE 500 MG Cap.ER PO ONE (10:04)
== END 2024-05-28 10:31 | disposition home or self-care (01) ==
LOC: FB.SDS 07:35
PROVIDERS: ATTEND Ophthalmology
DX: H26.9 Unspecified cataract (principal); H40.1122 Primary open-angle glaucoma, left eye, moderate stage; I10 Essential (primary) hypertension; F31.75 Bipolar disorder, in partial remission, most recent episode depressed; F41.1 Generalized anxiety disorder; F98.8 Other specified behavioral and emotional disorders with onset usually occurring in childhood and adolescence; Z87.891 Personal history of nicotine dependence; Z79.899 Other long term (current) drug therapy; Z88.0 Allergy status to penicillin
CPT/HCPCS: A9270-GY; J2250; J3010; J3490; V2632